=== PATIENT | female | born 1975 | race Caucasian/White ===

== ENCOUNTER 2017-07-01 17:45 | Outpatient (CLI) | payer OTHER ==
[2017-07-01 19:40] VITALS: BP 126/56
== END 2017-07-01 19:52 | disposition home or self-care (01) ==
LOC: LDRP-OP 17:45 → 2WEST 17:48
DX: O47.03 False labor before 37 completed weeks of gestation, third trimester (principal); O34.219 Maternal care for unspecified type scar from previous cesarean delivery; O09.523 Supervision of elderly multigravida, third trimester; Z3A.36 36 weeks gestation of pregnancy
CPT/HCPCS: 59025; G0378